=== PATIENT | male | born 1985 | race Caucasian/White ===

== ENCOUNTER 2023-12-12 11:18 | Emergency (ER) | payer SELFPAY ==
[~2023-12-12] VITALS: Ht 172.7 cm; Wt 67.0 kg
[2023-12-12 12:10] VITALS: TEMP 98.6; O2SAT 97
[2023-12-12 13:30] VITALS: BP 143/65; PULSE 90; RESP 16
[2023-12-12] MEDS ORDERED: KETOROLAC 60MG/2ML VIAL IM ONE (13:30)
== END 2023-12-12 16:42 | disposition home or self-care (01) ==
LOC: ER 11:18
DX: S80.811A Abrasion, right lower leg, initial encounter (principal); J45.909 Unspecified asthma, uncomplicated; X58.XXXA Exposure to other specified factors, initial encounter; Y93.89 Activity, other specified; Y92.89 Other specified places as the place of occurrence of the external cause; Y99.8 Other external cause status
CPT/HCPCS: 73560; 73590; 73600; 96372; 99284; J1885; Z7610